=== PATIENT | female | born 1985 | race Caucasian/White ===

== ENCOUNTER → 2019-06-13 10:30 | Outpatient (BNVA) | payer MEDICAID, SELFPAY | PROVIDERS: Visit Provider Obstetrics & Gynecology | DX: O09.891 Supervision of other high risk pregnancies, first trimester (principal); Z3A.21 21 weeks gestation of pregnancy | CPT/HCPCS: 76805 ==

== ENCOUNTER → 2019-06-16 11:23 | Outpatient (BNVA) | payer MEDICAID, SELFPAY | PROVIDERS: Visit Provider Obstetrics & Gynecology | DX: Z01.89 Encounter for other specified special examinations (principal) | CPT/HCPCS: 84315 ==

== ENCOUNTER → 2019-07-07 08:16 | Outpatient (BNVA) | payer MEDICAID, SELFPAY | PROVIDERS: Visit Provider Obstetrics & Gynecology Female Pelvic Medicine and Reconstructive Surgery | DX: O09.892 Supervision of other high risk pregnancies, second trimester (principal) | CPT/HCPCS: 80307; 84315 ==

== ENCOUNTER → 2019-07-09 08:33 | Outpatient (BNVA) | payer MEDICAID, SELFPAY | PROVIDERS: Visit Provider Obstetrics & Gynecology | DX: Z36.89 Encounter for other specified antenatal screening (principal); Z3A.21 21 weeks gestation of pregnancy | CPT/HCPCS: 76816 ==

== ENCOUNTER → 2019-07-30 14:34 | Outpatient (BNVA) | payer MEDICAID, SELFPAY | PROVIDERS: Visit Provider Obstetrics & Gynecology Female Pelvic Medicine and Reconstructive Surgery | DX: O09.892 Supervision of other high risk pregnancies, second trimester | CPT/HCPCS: 76816; 80307; 82950; 84315; 85025; 85027 ==

== ENCOUNTER → 2019-09-19 13:04 | Outpatient (BNVA) | payer MEDICAID, SELFPAY | PROVIDERS: Visit Provider Obstetrics & Gynecology | DX: O09.892 Supervision of other high risk pregnancies, second trimester (principal); F19.10 Other psychoactive substance abuse, uncomplicated; O99.320 Drug use complicating pregnancy, unspecified trimester | CPT/HCPCS: 80307; 84315; 87081 ==

== ENCOUNTER 2019-10-14 09:10 | Inpatient (IN) | payer MEDICAID, SELFPAY ==
[2019-10-14] VITALS (20 sets, daily range): BP systolic 82–117; BP diastolic 42–71; PULSE 56–89; RESP 13–17; TEMP 36.2–36.7; O2SAT 97–100; BMI 29.9
[2019-10-14] MEDS: lactated ringers 1,000 ML 999 ML IV ×2 (10:02→11:15)
[2019-10-14 10:10] LABS: Basophils % 0.2 %; Eosinophils # 0.1 10^3/uL (0.0-0.8); Eosinophils % 1.2 %; Hematocrit 37.1 % (37.0-47.0); Hemoglobin 12.3 g/dL (11.5-15.3); Lymphocytes # 2.2 10^3/uL (0.8-4.8); Lymphocytes % 23.6 %; Mean Corpuscular HGB Conc 33.2 g/dL (30.0-36.0); Mean Corpuscular Hemoglobin 30.8 pg (28.0-34.0); Mean Corpuscular Volume 92.8 fL (81-99); Mean Platelet Volume 10.8 fL (7.4-10.4); Monocytes # 0.9 10^3/uL (0.2-0.9); Monocytes % 9.4 %; Nucleated Red Blood Cells % 0 %; Platelet Count 244 10^3/cmm (130-400); Red Cell Distribution Width 13.5 % (12.1-15.1); White Blood Count 9.3 10^3/uL (4.0-10.0)
[2019-10-14] MEDS: ketorolac 30 mg/mL INJ IM (11:10)
[2019-10-14] MEDS: famotidine 20 mg/2 mL INJ IVP (11:11)
[2019-10-14] MEDS: metoclopramide 5 mg/mL SDV 2 mL 10 MG IVP ×2 (11:11→20:58)
[2019-10-14] MEDS: citric acid-sodium citrate 30 mL UDC PO (11:16)
--- NOTE | 2019-10-14 11:30 | W.PM.OPSUD ---
Surgery/Procedure H&P Update DATE OF PROCEDURE: October 14, 2019 DATE H&P PERFORMED: 10/10/19 H&P UPDATE INFORMATION: I have reviewed H&P completed within last 30 days, I have examined patient prior to procedure, No changes to prior documentation and H&[place] is in [facility] date indicated PREOP DIAGNOSIS: Prior section x 2, Undesired fertility PLANNED PROCEDURE: Repeat section, Bilateral tubal ligation.
--- NOTE | 2019-10-14 13:26 | P.OP_ITS ---
Operative Report Date of procedure: October 14, 2019 Pre-op Diagnosis: 1. Prior section x2, declines 2. Term at 39-5/7 weeks gestation 3. Mental disorder (depression) complicating in third trimester 4. Undesired fertility 5. Smoker complicating in third trimester 6. Marijuana use in in third trimester 7. Gastroesophageal reflux in in third trimester Post-op Diagnosis: 1. Prior section x2, declines 2. Term at 39-5/7 weeks gestation. 3. Mental disorder (depression) complicating - delivered 4. Undesired fertility 5. Smoker complicating - delivered 6. Marijuana use in - delivered 7. Gastroesophageal reflux in - delivered 8. Viable male Procedure Done: Repeat low transverse section with bilateral tubal ligation (complete salpingectomy) Specimens removed/disposition: Right and left fallopian tubes. Surgeon: Ronan Plasencia Rehab Manager: None Anesthesia: Other (Spinal) Estimated blood loss (mL): 800 IV fluids (mL): 1,000 Complications: None Findings: 1. Viable male , cephalic presentation, weight 7 lbs 12 oz (3525 g), length 19 inches, Apgars 8 at 1 minute and 9 at 5 minutes. 2. Normal-appearing uterus, tubes, and ovaries. Condition: stable Brief History: Patient is a 33-year-old white female 8, para 3-0-4-3 with an LMP of 01/09/2019 and an EDC of 10/16/2019 based on LMP and consistent with a 13-week ultrasound. care has been complicated by prior section x2, depression, tobacco use, marijuana use, and gastroesophageal reflux. Due to the patient's prior 2 sections, she wished to proceed with a repeat section. In addition, she was adamant that she did not want any further children and wanted a sterilization. Different methods of sterilization was discussed and she wished to have complete removal of the tubes. I reviewed with her before surgery that this was a nonreversible method. Risk of failure and ectopic pregnancies were also reviewed. Questions were answered. She still wished to proceed with the section and complete removal of tubes. Procedure: Patient was taken to the operating room where spinal anesthesia was obtained. She was prepped and draped in the usual sterile fashion in a dorsal supine position with a leftward tilt. Richards catheter and sequential compression boots had been placed prior to starting the case. Patient's prior Pfannenstiel scar was excised with a knife. Incision was carried down to the underlying fascia with the knife. Fascia was incised in the midline with the knife and extended laterally with Sanches scissors. Superior aspect of the fascia was grasped with Wing clamps, elevated, and sharply and bluntly dissected. The inferior aspect of the fascia was grasped with Wing clamps, elevated, and sharply and bluntly dissected. The rectus muscles were in the midline. Peritoneum was sharply entered. Peritoneal incision was extended both superiorly and inferiorly with good visualization of the bladder. Bladder blade was inserted. The vesicouterine peritoneum was tented up and sharply entered. It was extended laterally and the bladder flap was created digitally. Bladder blade was reinserted. A transverse incision was made with the knife in the lower uterine segment. Clear fluid was obtained upon entry into the uterine cavity. The infant's head was delivered. One loop of nuchal cord was noted and reduced. The rest of the delivered atraumatically. Nose and mouth were suctioned with bulb suction. Cord was clamped and cut and the infant was handed off to Dr. River and the waiting nurses. Cord blood was obtained. Placenta was delivered via uterine massage. Patient received 20 units of Pitocin in the IV fluids. The uterus was exteriorized and cleared of clots and debris. The uterine incision was closed in a running locking fashion using 0 Vicryl suture. The incision was imbricated using 0 Vicryl suture in a horizontal mattress fashion. The incision was inspected and noted to be hemostatic. The left fallopian tube was grasped with Gayathri clamps. The mesosalpinx was transilluminated, identifying the vessels coming to the tubes. Using 2-0 chromic suture, the vessels coming through the mesosalpinx to the fallopian tube were individually tied. The mesosalpinx was then cut with electrocautery. The vessels at the distal end of the tube were tied with a free tie of 0 plain suture. The proximal end of the tube was tied with a free stitch of 0 plain suture. These were then cut, completely excising the tube. The ends were cauterized with electrocautery. The right fallopian tube was grasped with [place] clamps. The mesosalpinx was transilluminated, identifying the vessels coming to the tubes. Using 2-0 chromic suture, the vessels coming through the mesosalpinx to the fallopian tube were individually tied. The mesosalpinx was then cut with electrocautery. The vessels at the distal end of the tube were tied with a free tie of 0 plain suture. The proximal end of the tube was tied with a free stitch of 0 plain suture. These were then cut, completely excising the tube. The ends were cauterized with electrocautery. Posterior cul-de-sac was thoroughly irrigated and cleared of clots and blood. The uterus was returned to the abdomen. The uterine incision was irrigated and noted to be hemostatic. The gutters were cleared of clots and blood. The rectus muscles and peritoneum were reapproximated in the midline using interrupted stitches of 2-0 Vicryl suture. The muscle layer was irrigated and noted to be hemostatic. The fascia was reapproximated using 0 Vicryl suture in a running fashion. The subcutaneous layer was irrigated and brought to hemostasis using electrocautery. It was reapproximated using 3-0 plain suture in an interrupted fashion. Skin was reapproximated using 4-0 Vicryl suture in a subcuticular fashion. Steri-Strips were applied. Patient tolerated the procedures well. Sponge, needle, and instrument counts were correct. DRAINS: Richards catheter POSTOPERATIVE STATUS: The patient was left to recover in satisfactory condition Associated Problem List Diagnoses (1) Encounter for maternal care for low transverse scar from previous delivery: (2) Mental disorder in , delivered: (3) Contraception management: Qualifiers: Contraceptive encounter type: other general counseling and advice Qualified Code(s): Z30.09 - Encounter for other general counseling and advice on contraception (4) complicated by tobacco use, delivered, current hospitalization: (5) complicated by maternal drug use, delivered, current hospitalization: (6) Gastroesophageal reflux in in third trimester:
[2019-10-14 14:24] LABS: Amphetamines Screen Urine Negative (Negative); Barbiturates Screen Urine Negative (Negative); Benzodiazepines Screen Urine Negative (Negative); Cocaine Screen Urine Negative (Negative); Opiate Screen Urine Negative (Negative); PCP Screen Urine Negative (Negative); THC Screen Urine Negative (Negative)
--- NOTE | 2019-10-14 15:21 | PC.NURSE ---
Pt ambulated to OR room with nurse assist
[2019-10-14] MEDS: ketorolac 30 mg/mL INJ IVP ×2 (15:56→22:30)
[2019-10-14] MEDS: ondansetron 2 mg/ML SDV 2 mL 4 MG IVP (15:57)
[2019-10-14] MEDS: dextrose 5%-lactated ringers 1,000 ML 125 ML IV (19:22)
--- NOTE | 2019-10-14 20:40 | PC.NURSE ---
Patient up to chair x 1 assist. Tolerates activity well. NEREYDA RN
--- NOTE | 2019-10-14 22:00 | PC.NURSE ---
[facility]. NEREYDA RN
[2019-10-15] MEDS: HYDROcodone-acetaminophen 5-325 mg Tablet PO ×4 (04:07→20:15)
--- NOTE | 2019-10-15 04:08 | PC.NURSE ---
Patient states she has passed flatus. NEREYDA RN
[2019-10-15] MEDS: dextrose 5%-lactated ringers 1,000 ML 125 ML IV (04:10)
[2019-10-15 04:12] VITALS: BP 91/55; PULSE 63; RESP 16; TEMP 36.5; O2SAT 95
--- NOTE | 2019-10-15 06:00 | PC.NURSE ---
catheter discontinued per order. NEREYDA RN
[2019-10-15 06:13] LABS: Hemoglobin 9.9 g/dL (11.5-15.3); Mean Corpuscular HGB Conc 34.1 g/dL (30.0-36.0); Mean Corpuscular Hemoglobin 31.5 pg (28.0-34.0); Mean Corpuscular Volume 92.4 fL (81-99); Mean Platelet Volume 10.1 fL (7.4-10.4); Platelet Count 197 10^3/cmm (130-400); Red Blood Count 3.14 10^6/uL (4.1-5.3); Red Cell Distribution Width 13.5 % (12.1-15.1); White Blood Count 10.1 10^3/uL (4.0-10.0)
[2019-10-15] MEDS: lanolin oint 7 gm 1 APPLIC TOPICAL (08:11)
[2019-10-15] MEDS: guaiFENesin-dextromethorphan UDC 10 mL PO ×2 (08:11→14:07)
[2019-10-15] MEDS: prenatal vitamin Capsule 1 CAP PO (08:11)
[2019-10-15] MEDS: ferrous sulfate EC 325 mg Tablet PO (08:12)
[2019-10-15] MEDS: docusate sodium 100 mg Capsule PO (08:12)
[2019-10-15 10:10] VITALS: BP 103/61; PULSE 83; RESP 15; TEMP 36.5
[2019-10-15 14:09] VITALS: BP 109/69; PULSE 90; RESP 18; TEMP 36.7
--- NOTE | 2019-10-15 18:29 | P.DS_ITS ---
Discharge Providers Date of Admission: 10/14/19 09:10 Date of Discharge: October 15, 2019 Attending Provider at Admission: Ronan Plasencia MD Attending Provider at Discharge: Ronan Plasencia MD Diagnoses at Discharge Discharge Diagnosis (1) Encounter for maternal care for low transverse scar from previous delivery: Status: Acute (2) Mental disorder in , delivered: Status: Acute (3) Contraception management: Status: Acute Qualifiers: Contraceptive encounter type: other general counseling and advice Qualified Code(s): Z30.09 - Encounter for other general counseling and advice on contraception (4) complicated by tobacco use, delivered, current hospitalization: Status: Acute (5) complicated by maternal drug use, delivered, current hospitalization: Status: Acute (6) Gastroesophageal reflux in in third trimester: Status: Acute Reason for Visit Reason for Visit: Abdominal pain Hospital Course Hospital Course: Patient is a 33-year-old white female 8, para 3-0-4-3 with an LMP of 01/09/2019 and an EDC of 10/16/2019 based on LMP and consistent with a 13-week ultrasound. care has been complicated by prior ce sarean section x2, depression, tobacco use, marijuana use, and gastroesophageal reflux. Patient had had 2 prior sections and was requesting repeat section. She had also decided that she did not want any further children when to have a sterilization performed. Permanence of sterilization was reviewed with her. Questions were answered. Patient was admitted to the hospital for surgery. A repeat low transverse section and bilateral tubal ligation (complete salpingectomy) was performed. She had a viable male infant weighing 7 pounds 12 ounces (3525 g) with a length of 19 inches and Apgars of 8 at 1 minute and 9 at 5 minutes. Patient received Duramorph in her spinal for pain relief. Patient initially had problems with nausea and vomiting following surgery and received parenteral medications. By the evening the nausea and vomiting was improving. POSTOPERATIVE DAY 1 Patient reports doing well today. Reports pain is been well controlled on oral medications. Denies lightheadedness or dizziness with ambulation. Denies shortness of breath or chest pains. Reports tolerating a regular diet without nausea or vomiting. Reports passing flatus. Denies problems with urination. States bleeding has decreased. She is requesting to go home. Physical exam: See below Plan Discharged home. Discharge instructions discussed with patient. Patient to follow-up in the office in 2 and 6 weeks following discharge. Physical Exam Const: COMMON NORMALS: no acute distress, average body habitus, alert and well nourished GENERAL APPEARANCE: well developed ORIENTATION/CONSCIOUSNESS: Yes oriented to person, Yes oriented to place and Yes oriented to time Resp: COMMON NORMALS: normal respiratory effort and clear to auscultation bilaterally AUSCULTATION: clear to auscultation bilaterally Cardio: COMMON NORMALS: regular rate, regular rhythm, No gallops present (Cardio) and No rub (Cardio) RATE: regular rate RHYTHM: regular rhythm GI: COMMON NORMALS: Soft to palpation, No hepatosplenomegaly present and no masses (Except for firm uterus below the umbilicus.) INSPECTION: Yes incision (Clean dry and intact with Steri-Strips present) AUSCULTATION: Yes normoactive bowel sounds PALPATION: Yes Soft to palpation, Yes Tenderness to palpation present (GI) (Lower abdomen.), Yes No hepatosplenomegaly present and No Hernia present : EXTERNAL FEMALE EXAM: No Hernia present Extremity: COMMON NORMALS: no calf tenderness GENERAL: Yes edema (Trace to 1+ bilateral lower extremity edema) Neuro: SENSORIUM/ORIENTATION: Yes alert, Yes oriented to person, Yes oriented to place and Yes oriented to time Psych: COMMON NORMALS: normal affect MOOD & AFFECT: Yes euthymic mood Urinary Catheter Management^: Richards: Cath Placed During This Visit: yes Urinary Catheter Date of Insertion: 10/14/19 Urinary Catheter Time of Insertion: 10:00 Discharge Data Data Completed and Pending: Labs from last 24 hours 10/15/19 06:00 WBC 10.1 H RBC 3.14 L Hgb 9.9 L Hct 29.0 L MCV 92.4 MCH 31.5 MCHC 34.1 RDW 13.5 Plt Count 197 MPV 10.1 Vitals: Last Vital Signs Temp 98.0 F 10/15/19 14:09 Pulse 90 10/15/19 14:09 Resp 18 10/15/19 14:09 BP 109/69 10/15/19 14:09 Pulse Ox 95 10/15/19 04:12 Discharge Plan Discharge Patient Disposition: Home, Self-Care Condition: Stable Prescriptions: New hydrocodone-acetaminophen 5-325 mg Tablet 1 - 2 tab PO Q6H PRN (Reason: Moderate To Severe Pain) Qty: 30 RF: 0 ibuprofen 800 mg Tablet 800 mg PO TID PRN (Reason: pain) Qty: 40 RF: 0 Continued prenat.vits,elana,[id number] Tablet 1 tab PO ONCE RF: 0 albuterol sulfate [ProAir HFA] 90 mcg/actuation HFA aerosol inhaler 2 puff INHALATION QID PRN (Reason: shortness of breath or wheezing) Qty: 1 RF: 0 (DME) breast pump Device See Rx Instructions .ROUTE .MEDSUPPLY Qty: 1 RF: 0 Discontinued promethazine 25 mg tablet 25 mg PO QID PRN (Reason: Acid Reflux) RF: 0 ferrous sulfate [Feosol] 325 mg (65 mg iron) tablet 325 mg PO BID Qty: 60 RF: 4 Discharge Orders: Discharge Order (Routine); Ordered 10/15/19 Ordered By: Ronan Plasencia Referrals: Ronan Plasencia MD [Physician] - (2-week incision check 6-week exam Please call Dr. Plasencia's office tomorrow to schedule the above appointments.) Discharge Diet: Regular Discharge Activity: Limit activity as instructed Patient Instructions: OB [facility], OB Discharge Report, OB Food/Drug Interaction Guide, OB Care at Home, OB Home Care, OB Proud Parent Packet Discharge Attestations Time Spent in Discharge Care*: less than 30 min Quality Metrics Clinical Quality Measures During this hospital stay, did patient experience: None Coding Level of Care Code Acute [place] Dried Salt for Chg Fwd Diagnoses Encounter for maternal care for low transverse scar from previous de chyna O34.211 Mental disorder in , delivered O99.344 Contraception management Z30.09 Contraceptive encounter type: other general counseling and advice complicated by tobacco use, delivered, current hospitalization O99.334 complicated by maternal drug use, delivered, current hospitalization O99.324; F19.90 Gastroesophageal reflux in in third trimester O99.613; K21.9
[2019-10-15 20:40] VITALS: BP 116/69; PULSE 82; RESP 16; TEMP 36.7; O2SAT 97
== END 2019-10-15 20:41 | disposition home or self-care (01) | DRG 784 ==
PROVIDERS: Admitting Provider Obstetrics & Gynecology; Visit Provider Obstetrics & Gynecology
DX: O34.219 Maternal care for unspecified type scar from previous cesarean delivery (principal); O99.324 Drug use complicating childbirth; N85.8 Other specified noninflammatory disorders of uterus; O99.284 Endocrine, nutritional and metabolic diseases complicating childbirth; O99.344 Other mental disorders complicating childbirth; F19.90 Other psychoactive substance use, unspecified, uncomplicated; O99.334 Smoking (tobacco) complicating childbirth; F17.210 Nicotine dependence, cigarettes, uncomplicated; K21.9 Gastro-esophageal reflux disease without esophagitis; F32.9 Major depressive disorder, single episode, unspecified; F12.90 Cannabis use, unspecified, uncomplicated; Z30.2 Encounter for sterilization; Z3A.39 39 weeks gestation of pregnancy; Z37.0 Single live birth
CPT/HCPCS: 12345; 36415; 51702; 59025; 59409; 80306; 85025; 85027; 88302; 96374; 96375; 98960; J0690; J1885; J2250; J2274; J2405; J2590; J2765; J3010; J3490; J7030

== ENCOUNTER → 2020-03-09 14:11 | Outpatient (BNVA) | payer MEDICAID, SELFPAY | PROVIDERS: Visit Provider Emergency Medicine | DX: Z20.828 Contact with and (suspected) exposure to other viral communicable diseases (principal) | CPT/HCPCS: 87635 ==